=== PATIENT | female | born 1950 | race African-American/Black ===

== ENCOUNTER 2018-04-07 09:46 | Emergency (ER) | payer SELFPAY ==
[~2018-04-07] VITALS: Ht 157.5 cm; Wt 50.0 kg
[2018-04-07] MEDS ORDERED: SODIUM CHLORIDE 0.9% 1,000 ML IV ONE (11:15)
[2018-04-07] MEDS ORDERED: ACETAMINOPHEN 325MG TABLET PO ONE (11:15)
[2018-04-07] MEDS ORDERED: LORAZEPAM 0.5MG TABLET PO ONE (11:15)
[2018-04-07 12:53] LABS: BASOPHILS % 0.3 % (0.0-2.0); EOSINOPHILS % 0.2 % (0.0-5.0); HEMATOCRIT. 34.1 % (36.0-48.0); HEMOGLOBIN. 11.6 g/dL (12.0-16.0); LYMPHOCYTES % 14.9 % (20.0-50.0); MEAN CORPUSCULAR HEMOGLOBIN 29.3 pg (28.0-32.0); MEAN CORPUSCULAR VOLUME 86.2 fL (81.0-99.0); MEAN PLATELET VOLUME 8.7 fl (7.4-10.4); MONOCYTES % 6.8 % (2.0-8.0); NEUTROPHILS % 77.8 % (40.0-76.0); PLATELET 253 x1000/uL (130-400); RED BLOOD CELL COUNT 3.95 mill/uL (4.2-5.4); RED CELL DISTRIBUTION WIDTH 13.2 % (11.6-14.6)
[2018-04-07 13:00] LABS: CHLORIDE 108 mEq/L (98-107)
[2018-04-07 14:30] VITALS: BP 180/91
== END 2018-04-07 14:35 | disposition home or self-care (01) ==
LOC: ER 09:46
DX: S80.02XA Contusion of left knee, initial encounter (principal); S80.01XA Contusion of right knee, initial encounter; W06.XXXA Fall from bed, initial encounter; Y93.89 Activity, other specified; Y92.092 Bedroom in other non-institutional residence as the place of occurrence of the external cause; I69.398 Other sequelae of cerebral infarction; I10 Essential (primary) hypertension; M24.562 Contracture, left knee; M24.561 Contracture, right knee; Z74.01 Bed confinement status
CPT/HCPCS: 36415; 73560; 80053; 85025; 99285; J7030; Z7610